=== PATIENT | male | born 1955 | race Caucasian/White ===

== ENCOUNTER → 2023-09-21 03:40 | Outpatient (REF) | payer MEDICARE, BC, SELFPAY | LOC: CLAB 03:40 | PROVIDERS: ATTENDING PHYSICIAN Specialist | DX: R97.20 Elevated prostate specific antigen [PSA] (principal) | CPT/HCPCS: 88305 ==

== ENCOUNTER → 2023-10-26 09:46 | Outpatient (REF) | payer MEDICARE, BC, SELFPAY | LOC: MRI 3T 09:46 | PROVIDERS: ATTENDING PHYSICIAN Specialist; FAMILY PHYSICIAN Family Medicine | DX: C61 Malignant neoplasm of prostate (principal) | CPT/HCPCS: 72197; A9575 ==